=== PATIENT | male | born 1975 | race Two or more races ===

== ENCOUNTER 2017-12-06 17:51 | Inpatient (IN) | payer BC ==
[~2017-12-06] VITALS: Ht 182.9 cm; Wt 90.7 kg
[~2017-12-06 17:51] MED LIST: FLOMAX0.4 MG PO; NKM; NORCO 10-325 T1 EACH PO
[2017-12-06 18:31] LABS: BASOPHILS % (AUTO) 0.7 % (0.0-2.0); EOSINOPHILS % (AUTO) 0.5 % (0.0-3.0); HEMOGLOBIN 17.1 G/DL (14.2-18.0); LYMPHOCYTES % (AUTO) 8.7 % (20.0-45.0); MEAN CORPUSCULAR VOLUME 95 FL (80-99); MONOCYTES % (AUTO) 6.5 % (1.0-10.0); NEUTROPHILS % (AUTO) 83.5 % (45.0-75.0); PLATELET COUNT 263 K/UL (150-450); RED CELL DISTRIBUTION WIDTH 11.3 % (11.6-14.8); WHITE BLOOD COUNT 10.6 K/UL (4.8-10.8)
[2017-12-06 18:53] VITALS: BP 127/75
[2017-12-06 19:12] LABS: ANION GAP 16 mmol/L (5-15); BLOOD UREA NITROGEN 24 mg/dL (7-18); CALCIUM 10.1 MG/DL (8.5-10.1); CARBON DIOXIDE 21 MMOL/L (21-32); CHLORIDE 99 MMOL/L (98-107); CREATININE 2.6 MG/DL (0.55-1.30); POTASSIUM 4.9 MMOL/L (3.5-5.1); SODIUM 135 MMOL/L (136-145)
[2017-12-06 19:17] LABS: ALANINE AMINOTRANSFERASE 34 U/L (12-78); ALBUMIN 5.5 G/DL (3.4-5.0); ALKALINE PHOSPHATASE 87 U/L (46-116); ASPARTATE AMINO TRANSFERASE 21 U/L (15-37); BILIRUBIN,TOTAL 0.4 MG/DL (0.2-1.0)
[2017-12-06 20:29] LABS: BILIRUBIN, URINE 1+ (NEGATIVE); COLOR,URINE BROWN; GLUCOSE, URINE (UA) 1+ (NEGATIVE); KETONES,URINE 1+ (NEGATIVE); LEUKOCYTE ESTERASE ,URINE 1+ (NEGATIVE); NITRITE,URINE NEGATIVE (NEGATIVE); PH,URINE 5 (4.5-8.0); PROTEIN,URINE 4+ (NEGATIVE); UROBILINOGEN,URINE 1 MG/DL (0.0-1.0)
[2017-12-06 20:33] LABS: APPEARANCE,URINE SLIGHTLY CLOUDY
--- NOTE | 2017-12-06 22:45 | Emergency Room Report ---
History of Present Illness General Chief Complaint: Diarrhea Source: Patient Present Illness HPI This patient states that he has had diarrhea for the past day. He states that he ate ceviche at a restaurant yesterday. He states that since that time he has had watery diarrhea recurrently. He states that the diarrhea is yellow. He denies bloody stool. He denies fever or chills. He has had nausea but no vomiting. He has no other complaints. The patient is HIV but states that he is undetectable. He states he also has hepatitis B and C but is nonreactive at this time. Allergies: Coded Allergies: No Known Allergies (Unverified , 08/23/13) Patient History Past Medical History: see triage record, HIV, other - HBV, HCV Social History: Denies: smoking, alcohol use, drug use Reviewed Nursing Documentation: PMH: Agreed; PSxH: Agreed Nursing Documentation-PMH Hx Cardiac Problems: No - Hep B & C, HIV Hx Cancer: No Hx Gastrointestinal Problems: Yes - anal warts Hx Neurological Problems: No Review of Systems All Other Systems: negative except mentioned in HPI Physical Exam Vital Signs Date Time Temp Pulse Resp B/P (MAP) Pulse Ox O2 Delivery O2 Flow Rate FiO2 12/06/17 17:57 97.5 109 18 103/66 99 Room Air 97.5 Sp02 EP Interpretation: reviewed, normal General Appearance: no apparent distress, alert, GCS 15, non-toxic Head: normocephalic, atraumatic Eyes: bilateral eye normal inspection, bilateral eye PERRL ENT: hearing grossly normal, normal pharynx, no angioedema, normal voice Neck: full range of motion, supple/symm/no masses Respiratory: chest non-tender, lungs clear, normal breath sounds, no respiratory distress, no retraction, no accessory muscle use, speaking full sentences Cardiovascular #1: regular rate, rhythm, no edema Gastrointestinal: normal bowel sounds, non tender, soft, non-distended, no guarding, no rebound Rectal: deferred Musculoskeletal: back normal, gait/station normal, normal range of motion, non- tender Neurologic: alert, oriented x3, responsive, motor strength/tone normal, sensory intact, speech normal Psychiatric: judgement/insight normal, memory normal, mood/affect normal, no suicidal/homicidal ideation Skin: normal color, no rash, warm/dry, well hydrated Medical Decision Making Diagnostic Impression: Primary Impression: Renal failure Additional Impression: Diarrhea ER Course This patient presents with diarrhea but is found to have renal failure. The patient does not have any history of kidney disease. He has a creatinine at 2.6. I'm concerned that he could be developing a glomerulonephritis. I'm concerned that this patient's renal failure will worsen. The patient will be admitted for further monitoring, evaluation and treatment. Laboratory Tests Test 12/06/17 18:16 12/06/17 20:00 White Blood Count 10.6 K/UL (4.8-10.8) Red Blood Count 5.40 M/UL (4.70-6.10) Hemoglobin 17.1 G/DL (14.2-18.0) Hematocrit 51.0 % (42.0-52.0) Mean Corpuscular Volume 95 FL (80-99) Mean Corpuscular Hemoglobin 31.7 PG (27.0-31.0) H Mean Corpuscular Hemoglobin Concent 33.5 G/DL (32.0-36.0) Red Cell Distribution Width 11.3 % (11.6-14.8) L Platelet Count 263 K/UL (150-450) Mean Platelet Volume 8.7 FL (6.5-10.1) Neutrophils (%) (Auto) 83.5 % (45.0-75.0) H Lymphocytes (%) (Auto) 8.7 % (20.0-45.0) L Monocytes (%) (Auto) 6.5 % (1.0-10.0) Eosinophils (%) (Auto) 0.5 % (0.0-3.0) Basophils (%) (Auto) 0.7 % (0.0-2.0) Sodium Level 135 MMOL/L (136-145) L Potassium Level 4.9 MMOL/L (3.5-5.1) Chloride Level 99 MMOL/L (98-107) Carbon Dioxide Level 21 MMOL/L (21-32) Anion Gap 16 mmol/L (5-15) H Blood Urea Nitrogen 24 mg/dL (7-18) H Creatinine 2.6 MG/DL (0.55-1.30) H Estimate Glomerular Filtration Rate 26.9 mL/min (>60) Glucose Level 169 MG/DL (74-106) H Calcium Level 10.1 MG/DL (8.5-10.1) Total Bilirubin 0.4 MG/DL (0.2-1.0) Aspartate Amino Transferase (AST) 21 U/L (15-37) Alanine Aminotransferase (ALT) 34 U/L (12-78) Alkaline Phosphatase 87 U/L (46-116) Total Protein 10.9 G/DL (6.4-8.2) H Albumin 5.5 G/DL (3.4-5.0) H Globulin 5.4 g/dL Albumin/Globulin Ratio 1.0 (1.0-2.7) Lipase 213 U/L (73-393) Urine Color Brown Urine Appearance Slightly cloudy Urine pH 5 (4.5-8.0) Urine Specific [place] 1.020 (1.005-1.035) Urine Protein 4+ (NEGATIVE) H Urine Glucose (UA) 1+ (NEGATIVE) H Urine Ketones 1+ (NEGATIVE) H Urine Occult Blood 2+ (NEGATIVE) H Urine Nitrite Negative (NEGATIVE) Urine Bilirubin 1+ (NEGATIVE) H Urine Ictotest Negative Urine Urobilinogen 1 MG/DL (0.0-1.0) H Urine Leukocyte Esterase 1+ (NEGATIVE) H Urine RBC 5-10 /HPF (0 - 0) H Urine WBC 2-4 /HPF (0 - 0) Urine Squamous Epithelial Cells None /LPF (NONE/OCC) Urine Amorphous Sediment Few /LPF (NONE) H Urine Bacteria Few /HPF (NONE) Urine Fine Granular Casts 2-4 /LPF (NONE) H Last Vital Signs Date Time Temp Pulse Resp B/P (MAP) Pulse Ox O2 Delivery O2 Flow Rate FiO2 12/06/17 18:53 87 30 127/75 100 Room Air 12/06/17 17:57 97.5 97.5 Disposition: ADMITTED INPATIENT Condition: Serious Referrals: Pavel Hilliard MD (PCP) Jessica Downey DO Dec 06, 2017 22:45
[2017-12-07] VITALS (8 sets, daily range): BP systolic 101–128; BP diastolic 64–80
[2017-12-07] MEDS: Heparin 5000 units/ml inj SUBQ SCH ×3 (01:14→21:12)
[2017-12-07] MEDS ORDERED: VITAMIN D1000 UNI1 ORAL (01:50)
[2017-12-07] MEDS ORDERED: GENVOYA TABLET1 EACH PO (01:50)
[2017-12-07] MEDS ORDERED: VITAMIN B COMP1 EAC2 ORAL (01:50)
[2017-12-07] MEDS: NovoLOG Insulin Flexpen SUBQ SCH ×4 (06:30→21:00)
[2017-12-07 07:29] LABS: BASOPHILS % (AUTO) 0.6 % (0.0-2.0); EOSINOPHILS % (AUTO) 0.5 % (0.0-3.0); HEMATOCRIT 44.4 % (42.0-52.0); HEMOGLOBIN 15.2 G/DL (14.2-18.0); MEAN CORPUSCULAR VOLUME 93 FL (80-99); MONOCYTES % (AUTO) 12.4 % (1.0-10.0); NEUTROPHILS % (AUTO) 68.5 % (45.0-75.0); PLATELET COUNT 227 K/UL (150-450)
[2017-12-07 08:01] LABS: ALANINE AMINOTRANSFERASE 34 U/L (12-78); ALBUMIN 4.1 G/DL (3.4-5.0); ALBUMIN/GLOBULIN RATIO 0.9 (1.0-2.7); ALKALINE PHOSPHATASE 67 U/L (46-116); ANION GAP 14 mmol/L (5-15); ASPARTATE AMINO TRANSFERASE 21 U/L (15-37); BILIRUBIN,TOTAL 0.4 MG/DL (0.2-1.0); BLOOD UREA NITROGEN 26 mg/dL (7-18); CALCIUM 8.9 MG/DL (8.5-10.1); CARBON DIOXIDE 18 MMOL/L (21-32); CHLORIDE 103 MMOL/L (98-107); CHOLESTEROL 160 MG/DL (< 200); CREATININE 1.3 MG/DL (0.55-1.30); HDL CHOLESTEROL 55 MG/DL (40-60); POTASSIUM 3.8 MMOL/L (3.5-5.1); SODIUM 135 MMOL/L (136-145); TRIGLYCERIDES 86 MG/DL (30-150)
--- NOTE | 2017-12-07 10:56 | Diagnostic Imaging Report ---
Indication: Acute renal failure Technique: Grayscale and duplex images of the kidneys, retroperitoneum, and bladder were obtained. Comparison: none. Reference made to CT scan 08/23/2013 Findings: Right kidney measures 11 cm in length. Left kidney measures 11.5 cm in length. Both kidneys demonstrate normal echogenicity. No hydronephrosis. There is a small cyst in the left upper pole. Normal inferior vena cava. Bladder is normal. Impression: Small left upper pole cyst. Otherwise unremarkable. Negative for hydronephrosis.
[2017-12-07] MEDS: GENVOYA TABLET ORAL SCH (13:00)
[2017-12-07] MEDS: Loperamide 2mg cap ORAL PRN ×2 (13:45→21:06)
[2017-12-07] MEDS: metroNIDAZOLE 500mg tab ORAL SCH ×2 (14:37→21:06)
--- NOTE | 2017-12-07 15:23 | Consultation ---
Consult Note Assessment/Plan Renal consult dictated # [id number] Scott Wills MD Dec 07, 2017 15:23
--- NOTE | 2017-12-07 16:46 | Consultation ---
DATE OF CONSULTATION: 12/07/2017 INFECTIOUS DISEASES CONSULTATION CONSULTING PHYSICIAN: Surekha Bosch M.D. REFERRING PHYSICIAN: Pavel Hilliard M.D. REASON FOR CONSULTATION: Gastroenteritis. HISTORY OF PRESENTING ILLNESS: This is a 42-year-old gentleman with history of human immunodeficiency virus and hepatitis B and C, who came in after he ate shrimp at the restaurant on Tuesday and then subsequently, he started developing watery diarrhea with yellowish stools multiple times a day without any blood. He also felt weak and an Infectious Diseases consultation has been obtained for possible gastroenteritis. PAST MEDICAL HISTORY: 1. History of human immunodeficiency. 2. History of hepatitis B. 3. History of hepatitis C. 4. History of shingles. 5. History of syphilis, status post treatment. 6. History of gonorrhea and chlamydia status post treatment. 7. Anal warts. MEDICATIONS: As an inpatient, he is on vitamin D and B, insulin, subcutaneous heparin, Mylanta, loperamide, and Tylenol. ALLERGIES: No known drug allergies. SOCIAL HISTORY: He does not smoke, drink, or use drugs. FAMILY HISTORY: Noncontributory. REVIEW OF SYSTEMS: RESPIRATORY: He denies any fever, chills, cough, shortness of breath, or chest pain. CARDIAC: No chest pain. No palpitations. No dizziness. No syncope. GASTROINTESTINAL: He does have nausea. No vomiting. He does have abdominal pain and diarrhea. PHYSICAL EXAMINATION: VITAL SIGNS: Temperature of 98.2, T-max of 98.1, pulse of 74, respiratory rate 21, blood pressure of 128/73, and O2 saturation of 99%. HEENT: Pupils equally reactive to light and accommodation. Mouth appears clean without thrush. NECK: Supple. No adenopathy. No JVD. CARDIOVASCULAR: Regular rate and rhythm. No murmurs. LUNGS: Clear to auscultation bilaterally. No crackles. No wheezes. ABDOMEN: Soft and nontender. No organomegaly. EXTREMITIES: No cyanosis, no clubbing, no edema. LABORATORY AND DIAGNOSTIC DATA: White count of 7, hemoglobin 15.2, hematocrit 44.4, MCV 93, and platelet count of 227,000 with neutrophils of 68%. Sodium 135, potassium 3.8, chloride 103, bicarb 18, BUN 26, creatinine 1.3, glucose 104, and calcium 8.9. Total bilirubin 0.4. AST 21, ALT 34, and alkaline phosphatase 67. Total protein 8.5. Albumin 4.1. Cholesterol of 160. Lipase of 213. UA showing 2 to 4 white cells. Stool for C. difficile is negative. Renal ultrasound showing small left upper pole cysts, otherwise negative for hydronephrosis. BUN was 24 on 12/06/2017 and creatinine was 2.6. ASSESSMENT: 1. This is a 42-year-old gentleman with history of human immunodeficiency virus, hepatitis B and C, who comes in with diarrhea as well as abdominal pain after eating shrimp at a restaurant. Would be concerned regarding gastroenteritis as a possibility. 2. History of hepatitis C. 3. History of syphilis, gonorrhea, and chlamydia status post treatment. PLAN: 1. We will start the patient on intravenous ciprofloxacin and Flagyl. 2. We will order stool cultures. 3. We will follow up cultures and adjust antibiotics accordingly. I would like to thank, Dr. Hilliard, for this consultation. Surekha Bosch M.D. DR: CRISPIN JOB#: [id number] CC: Pavel Hilliard M.D.; Fax#: [phone]
--- NOTE | 2017-12-07 20:45 | Consultation ---
DATE OF CONSULTATION: 12/07/2017 NEPHROLOGY CONSULTATION CONSULTING PHYSICIAN: Scott Wills M.D. REFERRING PHYSICIAN: Pavel Hilliard M.D. REASON FOR CONSULTATION: Acute renal failure. HISTORY OF PRESENT ILLNESS: This is a 42-year-old male with history of HIV, hepatitis B, and hepatitis C, who started having diarrhea up to 30 times yesterday, watery, and he came to the emergency room. He was found to have elevation in BUN and creatinine to 24 and 2.6. I was asked to see him in nephrology consultation. He denies previous history of kidney disease. PAST MEDICAL HISTORY: As above. There is no history of hypertension or diabetes. MEDICATIONS: Reviewed in EMR. SOCIAL HISTORY: The patient is single. 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 ALLERGIES: No known drug allergies. REVIEW OF SYSTEMS: As above. PHYSICAL EXAMINATION: GENERAL: The patient is a 42-year-old male, in no acute distress. VITAL SIGNS: Blood pressure is 119/73, pulse 72, respiratory rate 22, temperature 97.9. HEENT: [place] conjunctivae. Anicteric sclerae. NECK: Supple. LUNGS: Clear to auscultation. HEART: S1, S2 without murmurs or rubs. ABDOMEN: Soft, nontender. EXTREMITIES: No cyanosis or edema. LABORATORY FINDINGS: The chemistry panel shows serum sodium 135, potassium 3.8, chloride 103, CO2 26, BUN is 1.3, calcium is 8.9. The UA shows 4+ protein, 5 to 10 rbc's, 2 to 4 wbc's per high-power field. ASSESSMENT: This is a 42-year-old male with HIV, hepatitis C, and hepatitis B, who presents now with acute renal failure. 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 Hepatitis C and hepatitis B also could cause glomerulonephritis. PLAN: 1. I would continue the IV fluid. 2. Chemistry panel will be followed closely. 3. The patient will need to have repeat UA in a few days. Further studies may be needed if the patient continues to have significant proteinuria or hematuria. Thank you very much Dr. Hilliard for this consultation. Scott Wills M.D. DR: Sirisha JOB#: [id number] CC:
--- NOTE | 2017-12-08 03:30 | History and Physical Report ---
DATE OF ADMISSION: 12/06/2017 HISTORY OF PRESENT ILLNESS: The patient is a 42-year-old male with history of human immunodeficiency virus, history of hepatitis B and C, who presented to the emergency room with complaints of watery diarrhea for the past several days. No blood in the stool, no black stools. multiple times admitted to some abdominal discomfort, states this happened after he ate shrimp at a restaurant. Denies any fevers. Admitted to have had some chills. No chest pain. No shortness of breath. No sore throat. No headache. No urinary symptoms. PAST MEDICAL HISTORY: Includes history of human immunodeficiency virus, history of hepatitis B, history of hepatitis C, history of shingles, history of syphilis, history of gonorrhea, history of Chlamydia, status post treatment, and history of anal warts. MEDICATIONS: Medications he is on, please see his reconciled medication list. ALLERGIES: None known. SOCIAL HISTORY: Does not smoke. Does not drink any alcohol. Does not use currently any drugs, used to use drugs in the past. FAMILY HISTORY: Noncontributory. REVIEW OF SYSTEMS: Twelve point review of systems was reviewed and negative except for above. PHYSICAL EXAMINATION: GENERAL: He is well developed, well nourished, currently in no apparent distress. VITAL SIGNS: Temperature 98.2, blood pressure 128/73, respirations 21, and pulse 74. HEENT: Head is normocephalic, atraumatic. Pupils are equal and reactive to light. Extraocular muscles are intact. Eyes are anicteric. Throat, mucous membranes are moist. No thrush. NECK: Supple. No JVP. No bruits. HEART: Regular rate and rhythm without murmurs, rubs, or gallops. LUNGS: Clear to auscultation bilaterally. ABDOMEN: Soft. Positive bowel sounds. Nondistended. Nontender. EXTREMITIES: No clubbing, cyanosis, or edema. LABORATORY AND DIAGNOSTIC DATA: Labs, white count 7, hemoglobin 15.3, hematocrit 44.4, platelet count 227, and 68% neutrophils. Sodium 135, potassium 3.8, chloride 103, bicarbonate 18, BUN of 26, and creatinine 1.3. His BUN and creatinine was 24 and 2.6 yesterday. Glucose today 104. Glycohemoglobin 6.1. C. diff is negative. Renal ultrasound reveals a small left upper lobe cyst, otherwise unremarkable, negative for hydro. ASSESSMENT AND PLAN: The patient is an unfortunate 42-year-old male, presents with diarrhea, dehydration, worsening renal parameters, and history of human immunodeficiency virus. We will obtain a stool culture, C. diff and empirically start him on antibiotics, Cipro and Flagyl. Given intravenous fluids. His renal parameters have improved. However, I did ask Nephrology consultation from Dr. Wills to see him. I have also asked Infectious Disease consultation by Dr. Bosch to see the patient. The patient should be on DVT and ulcer prophylaxes. Pavel Hilliard M.D. DR: BURTON JOB#: [id number] CC:
[2017-12-08 04:00] VITALS: BP 105/60
[2017-12-08] MEDS: NovoLOG Insulin Flexpen SUBQ SCH ×4 (06:22→21:00)
[2017-12-08] MEDS: metroNIDAZOLE 500mg tab ORAL SCH ×3 (06:22→21:07)
[2017-12-08 08:00] VITALS: BP 120/74
[2017-12-08] MEDS: GENVOYA TABLET ORAL SCH (09:21)
[2017-12-08] MEDS: Heparin 5000 units/ml inj SUBQ SCH ×2 (09:22→21:08)
[2017-12-08] MEDS: Vitamin D 1000 IU Tab ORAL SCH (09:29)
[2017-12-08] MEDS: Vitamin B Complex Tab ORAL SCH (09:29)
[2017-12-08 12:00] VITALS: BP 114/74
--- NOTE | 2017-12-08 12:41 | Diagnostic Imaging Report ---
APPROVED REPORT CPT Code: 05940 Present Symptoms Comments: Acute renal failure BILATERAL: Imaging reveals a patent deep venous system bilaterally. There is no evidence of thrombus within the femoral, popliteal or tibial segments. The greater saphenous veins are also within normal limits. Doppler indicates normal spontaneous flow within these segments.
--- NOTE | 2017-12-08 14:57 | Nephrology Progress Note ---
Assessment/Plan Problem List: (1) HIV (human immunodeficiency virus infection) (2) ARF (acute renal failure) (3) Diarrhea Plan IVF Abxs follow BMP Subjective Subjective still with diarrhea Objective Objective Last 24 Hour Vital Signs Date Time Temp Pulse Resp B/P (MAP) Pulse Ox O2 Delivery O2 Flow Rate FiO2 12/08/17 12:00 97.9 82 20 114/74 (87) 100 97.9 12/08/17 09:00 Room Air 12/08/17 08:00 98.9 80 20 120/74 (89) 100 98.9 12/08/17 04:00 98.6 76 20 105/60 (75) 100 98.6 12/07/17 23:15 99.2 72 18 104/64 (77) 96 99.2 12/07/17 21:00 Room Air 12/07/17 20:00 99.1 72 20 101/67 (78) 100 99.1 12/07/17 16:00 98.1 68 20 119/75 (90) 99 98.1 Intake and Output 12/07/17 12/08/17 19:00 07:00 Intake Total 2225 ml 1155 ml Balance 2225 ml 1155 ml Intake Oral 1200 ml 400 ml IV Total 1025 ml 755 ml # Voids 3 2 # Bowel Movements 1 9 Laboratory Tests 12/07/17 19:30: HIV-1 RNA (PCR) log10 Value [Pending], HIV-1 RNA Ultraquantitative (PCR) [ Pending] Height (Feet): 6 Height (Inches): 0.00 Weight (Pounds): 200 Cardiovascular: normal rate Respiratory/Chest: lungs clear Extremities: other - no edema Scott Wills MD Dec 08, 2017 14:57
--- NOTE | 2017-12-08 14:59 | Infectious Diseases Prog Note ---
Assessment/Plan Assessment/Plan A; Gastroenteritis HIV Hepatitis B Hepatitis C P: Continue Flagyl & Ciprofloxacin Subjective ROS Limited/Unobtainable: No Constitutional: Reports: no symptoms Gastrointestinal/Abdominal: Reports: diarrhea Genitourinary: Reports: no symptoms Neurologic: Reports: no symptoms Allergies: Coded Allergies: No Known Allergies (Unverified , 08/23/13) Objective Vital Signs Last 24 Hour Vital Signs Date Time Temp Pulse Resp B/P (MAP) Pulse Ox O2 Delivery O2 Flow Rate FiO2 12/08/17 12:00 97.9 82 20 114/74 (87) 100 97.9 12/08/17 09:00 Room Air 12/08/17 08:00 98.9 80 20 120/74 (89) 100 98.9 12/08/17 04:00 98.6 76 20 105/60 (75) 100 98.6 12/07/17 23:15 99.2 72 18 104/64 (77) 96 99.2 12/07/17 21:00 Room Air 12/07/17 20:00 99.1 72 20 101/67 (78) 100 99.1 12/07/17 16:00 98.1 68 20 119/75 (90) 99 98.1 Height (Feet): 6 Height (Inches): 0.00 Weight (Pounds): 200 General Appearance: no acute distress HEENT: mucous membranes moist Respiratory/Chest: lungs clear Cardiovascular: normal rate Abdomen: soft, non tender Extremities: no edema Skin: no rash Neurologic/Psychiatric: alert, oriented x 3, responsive Microbiology Date/Time Source Procedure Growth Status 12/07/17 13:20 Stool Stool Culture - Preliminary NORMAL FECAL ARACELY. Resulted 12/07/17 01:50 Stool Clostridium difficile Toxin Assay - Final Complete 12/07/17 01:50 Rectum Stool Culture - Preliminary NORMAL FECAL ARACELY. Resulted Laboratory Tests Test 12/07/17 19:30 HIV-1 RNA (PCR) log10 Value Pending HIV-1 RNA Ultraquantitative (PCR) Pending Current Medications Medications (Trade) Dose Ordered Sig/Arnel Route PRN Reason Start Time Stop Time Status Last Admin Dose Admin Acetaminophen (Tylenol) 650 mg Q6H PRN ORAL Mild Pain/Temp > 100.5 12/07/17 00:00 01/06/18 00:00 12/07/17 13:46 Al Hydroxide/Mg Hydroxide (Mylanta) 30 ml BID PRN ORAL Abdominal cramps 12/07/17 00:00 01/06/18 00:00 Ciprofloxacin 200 ml @ 200 mls/hr Q12HR IV 12/07/17 12:30 12/14/17 12:29 12/08/17 09:21 Dextrose (Dextrose 50%) 25 ml STAT PRN IV Hypoglycemia 12/07/17 00:00 01/06/18 00:00 Dextrose (Dextrose 50%) 50 ml STAT PRN IV Hypoglycemia 12/07/17 00:00 01/06/18 00:00 Heparin Sodium (Porcine) (Heparin 5000 units/ml) 5,000 units EVERY 12 HOURS SUBQ 12/07/17 00:15 01/06/18 00:14 12/08/17 09:22 Insulin Aspart (NovoLOG) BEFORE MEALS AND HS SUBQ 12/07/17 06:30 01/06/18 06:29 Loperamide HCl (Imodium) 2 mg QID PRN ORAL Diarrhea 12/07/17 00:00 01/06/18 00:00 12/07/17 21:06 Metronidazole (Flagyl) 500 mg Q8HR ORAL 12/07/17 14:00 12/14/17 13:59 12/08/17 14:14 Patient Own Medication (Patient's Own Med) 1 ea DAILY ORAL 12/07/17 13:00 01/06/18 12:59 12/08/17 09:21 Sodium Chloride 1,000 ml @ 75 mls/hr [id number] IV 12/07/17 01:00 01/06/18 00:59 12/08/17 04:00 Vitamin B Complex (Vitamin B Complex) 1 tab DAILY ORAL 12/08/17 09:31 01/07/18 09:30 12/08/17 09:29 Vitamin D (Vitamin D) 1,000 intlu DAILY ORAL 12/08/17 09:30 01/07/18 09:29 12/08/17 09:29 John Wills MD Dec 08, 2017 14:59
[2017-12-08 16:00] VITALS: BP 123/80
[2017-12-08 20:00] VITALS: BP 120/72
--- NOTE | 2017-12-08 22:02 | General Progress Note ---
Assessment/Plan Assessment/Plan diarrhea dehydration ho HIV pos renal failure reolved abx per ID check cultures HIV meds per ID monitor labs Subjective Allergies: Coded Allergies: No Known Allergies (Unverified , 08/23/13) Subjective continues to co diarrhea no abodminal paiin no n/v Objective Last 24 Hour Vital Signs Date Time Temp Pulse Resp B/P (MAP) Pulse Ox O2 Delivery O2 Flow Rate FiO2 12/08/17 16:00 97.0 83 20 123/80 (94) 100 97.0 12/08/17 12:00 97.9 82 20 114/74 (87) 100 97.9 12/08/17 09:00 Room Air 12/08/17 08:00 98.9 80 20 120/74 (89) 100 98.9 12/08/17 04:00 98.6 76 20 105/60 (75) 100 98.6 12/07/17 23:15 99.2 72 18 104/64 (77) 96 99.2 Intake and Output 12/07/17 12/08/17 19:00 07:00 Intake Total 2225 ml 1155 ml Balance 2225 ml 1155 ml Intake Oral 1200 ml 400 ml IV Total 1025 ml 755 ml # Voids 3 2 # Bowel Movements 1 9 Height (Feet): 6 Height (Inches): 0.00 Weight (Pounds): 200 General Appearance: WD/WN, no apparent distress Neck: supple Cardiovascular: normal rate Respiratory/Chest: lungs clear Abdomen: soft Objective no edema Pavel Hilliard MD Dec 08, 2017 22:02
[2017-12-09] VITALS: BP 107/66
[2017-12-09 04:00] VITALS: BP 109/59
[2017-12-09 06:12] LABS: ANION GAP 7 mmol/L (5-15); BLOOD UREA NITROGEN 11 mg/dL (7-18); CALCIUM 8.4 MG/DL (8.5-10.1); CARBON DIOXIDE 23 MMOL/L (21-32); CHLORIDE 107 MMOL/L (98-107); POTASSIUM 3.6 MMOL/L (3.5-5.1); SODIUM 137 MMOL/L (136-145)
[2017-12-09] MEDS: NovoLOG Insulin Flexpen SUBQ SCH ×3 (06:30→16:30)
[2017-12-09] MEDS: metroNIDAZOLE 500mg tab ORAL SCH ×2 (06:42→14:09)
[2017-12-09 08:00] VITALS: BP 123/72
[2017-12-09] MEDS: GENVOYA TABLET ORAL SCH (09:02)
[2017-12-09] MEDS: Vitamin B Complex Tab ORAL SCH (09:02)
[2017-12-09] MEDS: Vitamin D 1000 IU Tab ORAL SCH (09:02)
[2017-12-09] MEDS: Heparin 5000 units/ml inj SUBQ SCH (09:04)
[2017-12-09 12:00] VITALS: BP 113/72
--- NOTE | 2017-12-09 15:41 | Infectious Diseases Prog Note ---
Assessment/Plan Assessment/Plan A; Gastroenteritis HIV Hepatitis B Hepatitis C P: Continue Flagyl & Ciprofloxacin Add Imodium Subjective ROS Limited/Unobtainable: No Constitutional: Reports: no symptoms Respiratory: Reports: no symptoms Cardiovascular: Reports: no symptoms Gastrointestinal/Abdominal: Reports: diarrhea Genitourinary: Reports: no symptoms Allergies: Coded Allergies: No Known Allergies (Unverified , 08/23/13) Objective Vital Signs Last 24 Hour Vital Signs Date Time Temp Pulse Resp B/P (MAP) Pulse Ox O2 Delivery O2 Flow Rate FiO2 12/09/17 12:00 98.7 77 18 113/72 (86) 98 98.7 12/09/17 09:00 Room Air 12/09/17 08:00 97.7 80 18 123/72 (89) 98 97.7 12/09/17 04:00 98.3 74 18 109/59 (76) 98 98.3 12/09/17 00:00 98.9 73 20 107/66 (80) 99 98.9 12/08/17 21:00 Room Air 12/08/17 20:00 98.9 78 20 120/72 (88) 98 98.9 12/08/17 16:00 97.0 83 20 123/80 (94) 100 97.0 Height (Feet): 6 Height (Inches): 0.00 Weight (Pounds): 200 General Appearance: no acute distress HEENT: mucous membranes moist Respiratory/Chest: lungs clear Cardiovascular: normal rate Abdomen: soft, non tender Extremities: no edema Neurologic/Psychiatric: alert, oriented x 3, responsive Microbiology Date/Time Source Procedure Growth Status 12/07/17 13:20 Stool Stool Culture - Preliminary NORMAL FECAL ARACELY. Resulted 12/07/17 01:50 Stool Clostridium difficile Toxin Assay - Final Complete 12/07/17 01:50 Stool Ova and Parasites - Final Complete 12/07/17 01:50 Stool Ova and Parasite Result 1 - Final Complete 12/07/17 01:50 Rectum Stool Culture - Preliminary Resulted Laboratory Tests Test 12/09/17 05:45 Sodium Level 137 MMOL/L (136-145) Potassium Level 3.6 MMOL/L (3.5-5.1) Chloride Level 107 MMOL/L (98-107) Carbon Dioxide Level 23 MMOL/L (21-32) Anion Gap 7 mmol/L (5-15) Blood Urea Nitrogen 11 mg/dL (7-18) Creatinine 1.0 MG/DL (0.55-1.30) Estimat Glomerular Filtration Rate > 60 mL/min (>60) Glucose Level 107 MG/DL (74-106) H Calcium Level 8.4 MG/DL (8.5-10.1) L Current Medications Medications (Trade) Dose Ordered Sig/Arnel Route PRN Reason Start Time Stop Time Status Last Admin Dose Admin Acetaminophen (Tylenol) 650 mg Q6H PRN ORAL Mild Pain/Temp > 100.5 12/07/17 00:00 01/06/18 00:00 12/07/17 13:46 Al Hydroxide/Mg Hydroxide (Mylanta) 30 ml BID PRN ORAL Abdominal cramps 12/07/17 00:00 01/06/18 00:00 Ciprofloxacin 200 ml @ 200 mls/hr Q12HR IV 12/07/17 12:30 12/14/17 12:29 12/09/17 09:02 Dextrose (Dextrose 50%) 25 ml STAT PRN IV Hypoglycemia 12/07/17 00:00 01/06/18 00:00 Dextrose (Dextrose 50%) 50 ml STAT PRN IV Hypoglycemia 12/07/17 00:00 01/06/18 00:00 Heparin Sodium (Porcine) (Heparin 5000 units/ml) 5,000 units EVERY 12 HOURS SUBQ 12/07/17 00:15 01/06/18 00:14 12/09/17 09:04 Insulin Aspart (NovoLOG) BEFORE MEALS AND HS SUBQ 12/07/17 06:30 01/06/18 06:29 Loperamide HCl (Imodium) 2 mg QID PRN ORAL Diarrhea 12/07/17 00:00 01/06/18 00:00 12/07/17 21:06 Metronidazole (Flagyl) 500 mg Q8HR ORAL 12/07/17 14:00 12/14/17 13:59 12/09/17 14:09 Patient Own Medication (Patient's Own Med) 1 ea DAILY ORAL 12/07/17 13:00 01/06/18 12:59 12/09/17 09:02 Sodium Chloride 1,000 ml @ 75 mls/hr [id number] IV 12/07/17 01:00 01/06/18 00:59 12/09/17 06:42 Vitamin B Complex (Vitamin B Complex) 1 tab DAILY ORAL 12/08/17 09:31 01/07/18 09:30 12/09/17 09:02 Vitamin D (Vitamin D) 1,000 intlu DAILY ORAL 12/08/17 09:30 01/07/18 09:29 12/09/17 09:02 John Wills MD Dec 09, 2017 15:41
[2017-12-09] MEDS ORDERED: Loperamide 2mg cap ORAL PRN ×2 (15:45)
[2017-12-09 16:00] VITALS: BP 114/71
--- NOTE | 2017-12-09 19:25 | Nephrology Progress Note ---
Assessment/Plan Problem List: (1) HIV (human immunodeficiency virus infection) (2) ARF (acute renal failure) Assessment: resolved (3) Diarrhea Plan cont as is Dc today Subjective Subjective all noted Objective Objective Last 24 Hour Vital Signs Date Time Temp Pulse Resp B/P (MAP) Pulse Ox O2 Delivery O2 Flow Rate FiO2 12/09/17 16:00 98.3 80 18 114/71 (85) 100 98.3 12/09/17 12:00 98.7 77 18 113/72 (86) 98 98.7 12/09/17 09:00 Room Air 12/09/17 08:00 97.7 80 18 123/72 (89) 98 97.7 12/09/17 04:00 98.3 74 18 109/59 (76) 98 98.3 12/09/17 00:00 98.9 73 20 107/66 (80) 99 98.9 12/08/17 21:00 Room Air 12/08/17 20:00 98.9 78 20 120/72 (88) 98 98.9 Intake and Output 12/08/17 12/09/17 19:00 07:00 Intake Total 395 ml 950 ml Balance 395 ml 950 ml Intake Oral 320 ml IV Total 75 ml 950 ml # Voids 4 4 # Bowel Movements 3 2 Laboratory Tests 12/09/17 05:45: Sodium Level 137, Potassium Level 3.6, Chloride Level 107, Carbon Dioxide Level 23, Anion Gap 7, Blood Urea Nitrogen 11, Creatinine 1.0, Estimat Glomerular Filtration Rate > 60, Glucose Level 107H, Calcium Level 8.4L Height (Feet): 6 Height (Inches): 0.00 Weight (Pounds): 200 Cardiovascular: normal rate Respiratory/Chest: lungs clear Scott Wills MD Dec 09, 2017 19:25
--- NOTE | 2017-12-12 08:58 | Discharge Summary ---
Discharge Summary Discharge Summary _ DATE OF ADMISSION: 12/06/2017 DATE OF DISCHARGE: 12/09/2017 REASON FOR ADMISSION: 42 years old male with history of HIV , hepatitis B and C , presented with complaint of watery diarrhea for one day after eating shrimp at the restaurant. Patient denied blood in the stool. He complained of nausea, but no vomiting . He denied fever and chills . Vital signs revealed tachycardia, but no fever. Laboratory workup revealed no leukocytosis, stable hemoglobin and hematocrit. BUN 24 creatinine 2.6. LFT, lipase ,m electrolytes were all within normal limits. Urinalysis revealed plus 4 protein, but no evidence of UTI. Patient admitted with diagnoses of diarrhea, dehydration, acute renal failure, HIV status, hepatitis B ,hepatitis C. CONSULTANTS: pulmonary Dr. 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 Wills [facility] COURSE: Patient admitted. Patient started on generous IV hydration. Patient started on empiric antibiotics. Stool culture were negative. Stool for C. difficile was negative. Stool for ova and parasite was negative. Infectious disease specialist closely followed. Patient was continued on Cipro and Flagyl. HIV RNA by PCR less than 20 Renal parameters and electrolytes were closely monitored. Electrolytes were corrected as needed. Nephrotoxics were avoided. Renal ultrasound revealed small left upper lobe cyst, otherwise unremarkable, no hydronephrosis. Symptomatic treatment provided. Patient started on Imodium. Pain management was addressed as needed. With IV hydration , acute renal failure resolved, BUN down to 18 and creatinine down to 1.0. Diarrhea stopped Patient stabilized and was ready for discharge home FINAL DIAGNOSES: Diarrhea Dehydration Gastroenteritis Acute renal failure, resolved HIV status Hepatitis B Hepatitis C DISCHARGE MEDICATIONS: List of discharge medication was provided to patient patient DISCHARGE INSTRUCTIONS: Patient was discharged home. Follow up with primary care provide in one week. I have been assigned to dictate discharge summary for this account. I was not involved in the patient's management. Cordelia Gilbert NP Dec 12, 2017 08:58
== END 2017-12-09 18:30 | disposition home or self-care (01) | DRG 977 ==
LOC: EMR 18:35 → 4E 23:12 → EDBEDREQ 23:32
DX: E86.0 Dehydration (principal); B20 Human immunodeficiency virus [HIV] disease; N17.9 Acute kidney failure, unspecified; B19.10 Unspecified viral hepatitis B without hepatic coma; B19.20 Unspecified viral hepatitis C without hepatic coma; K52.9 Noninfective gastroenteritis and colitis, unspecified; B02.9 Zoster without complications
CPT/HCPCS: 36415; 76770; 80048; 80053; 80061; 81003; 82962; 83036; 83690; 83735; 84443; 85025; 87045; 87324; 87536; 93970; J1815